=== PATIENT | female | born 1965 | race Caucasian/White ===

== ENCOUNTER → 2016-12-08 | Outpatient (CLI) | payer BC, OTHER ==
[~2016-12-08] MED LIST: ATV/1 PO; LUTE15CA PO; [UNRECOGNIZED DRUG - OTHER] PO
--- NOTE | 2016-12-08 08:33 | DIAGNOSTIC IMAGING REPORT ---
L KNEE 4 OR MORE, L COMPARISON VIEWS CLINICAL HISTORY: 50 years-old Female presenting with LEFT KNEE PAIN. TECHNIQUE: Bilateral frontal views of the knees in standing position as well as lateral, tunnel, and sunrise views of the left knee were obtained. COMPARISON: None. FINDINGS: Bilateral standing views of the knees demonstrate symmetric joint spaces and no gross degenerative change. Dedicated radiographs of the left knee demonstrate no acute fracture or subluxation. No significant degenerative change. No joint effusion. No patellar subluxation. Regional soft tissues within normal limits. IMPRESSION: Normal radiographs of the left knee and frontal view of the right knee. Electronically signed by: Ab Bahena M.D. 12/08/2016 8:31 AM Dictated Date/Time: 12/08/2016 8:30 AM
== END | disposition home or self-care (01) ==
LOC: C.RDSM 08:17
PROVIDERS: ATTEND Family Medicine
DX: M25.562 Pain in left knee (principal)

== ENCOUNTER → 2017-06-30 | Outpatient (CLI) | payer BC ==
--- NOTE | 2017-07-03 08:08 | MAMMOGRAPHY REPORT ---
BREAST MRI OF BOTH BREASTS : 06/30/2017 CLINICAL HISTORY: Possible implant rupture. COMPARISON: Prior outside mammograms dated 09/05/2016, 09/04/2015. Technique: The patient was placed prone in a dedicated breast imaging coil. Noncontrast axial and sa gittal T2 fat saturation, axial and sagittal T2 STIR, and axial T1 weighted sequences were obtained. Note that the exam is tailored for evaluation for implants, and the exam does not evaluate for breas t malignancy as no contrast was given. Findings: Bilateral subpectoral silicone implants are present. The implants are intact bilaterally, without ev idence of intracapsular or extracapsular rupture. The remainder of the visualized soft tissues are g rossly unremarkable on the noncontrast images. IMPRESSION: ACR BI-RADS CATEGORY 2: BENIGN Intact silicone implants bilaterally, without evidence of rupture. Recommend routine bilateral scree osmany mammograms which are due August 2017. Claudia Brewer M.D. 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
== END ==
LOC: C.MRI 06:49
PROVIDERS: ATTEND Specialist
DX: Z03.89 Encounter for observation for other suspected diseases and conditions ruled out (principal); Z96.89 Presence of other specified functional implants

== ENCOUNTER 2022-10-22 12:05 | Observation (INO) ==
[2022-10-22] MEDS ORDERED: SODIUM CHLORIDE 0.9% 1000ML 1,000 ML IV ONE (12:30)
--- NOTE | 2022-10-22 12:36 | Emergency Department Note ---
Impression & Plan Acute appendicitis, Abdominal pain, Leukocytosis ED Provider Note NAME: DAVID LAGOS AGE: 56 SEX: F : 1965 ARRIVES VIA: Walk-In INFORMANT: Patient ED PROVIDER(S): Efrain Hobson DO CHIEF COMPLAINT: Abdominal pain HPI: Patient is a 56-year-old female who presents ER for right lower quadrant abdominal pain which started yesterday. She notes the pain has been getting worse throughout today. She has not really been eating and drinking much. She notes significant worsened with movement including twisting, turning, and bending. Has nausea but no vomiting. No previous abdominal surgeries. No headache or change in vision. No chest pain or shortness of breath. No dysuria urgency or frequency. No other exacerbating or remitting factors. Last ate around 8 AM. PAST MEDICAL HISTORY:See Below PAST SURGICAL HISTORY:See Below FAMILY HISTORY:See Below SOCIAL HISTORY:See Below HOME MEDICATIONS:See Below ALLERGIES:See Below VITALS:See Below PHYSICAL EXAMINATION: GENERAL: Sitting up in bed, alert, well appearing, well nourished, no distress, non-toxic EYE EXAM: normal conjunctiva. OROPHARYNX: mucous membranes are moist LUNGS: Clear to auscultation. Normal chest wall mechanics HEART: no murmurs, S1 normal and S2 normal ABDOMEN: abdomen soft, TTP in RLQ, normo-active bowel sounds, no masses, no rebound or guarding. UPPER EXTREMITIES: upper extremities are grossly normal. LOWER EXTREMITIES: No pitting edema. NEURO EXAM: Normal sensorium, cranial nerves II-XII grossly intact, normal speech, no gross weakness of arms, no gross weakness of legs. MEDICAL DECISION MAKING: Patient is a 56-year-old female who presents to the ER for right lower quadrant abdominal pain. IV was established blood work was obtained. External records reviewed with multiple visits to plastic surgery. Labs show mild leukocytosis 12,000. No significant anemia. BMP with mild hypokalemia 3.4. LFTs bilirubin was unremarkable. Lipase was normal. UA was clean. CT abdomen pelvis confirms appendicitis with possible perforation. Patient was given IV Zosyn. She declined pain medications. She is updated bedside. Discussed with Thalia from general surgery who evaluate the patient took the patient to the OR. Triage Nursing notes reviewed. Limited review of prior medical records performed Vital Signs: reviewed and remarkable for no significant abnormalities Differential diagnosis: Differential diagnoses includes but is not limited to gastritis, peptic ulcer disease, GERD, gallbladder disease, pancreatitis, small bowel obstruction, appendicitis, diverticulitis, hernia, urinary tract infection, torsion, perforation, trauma, infectious. ER treatment provided: See below Diagnostics interpreted by me include EKG and cardiac monitoring as listed below: -Cardiac Monitoring: An order was placed for continuous cardiac monitoring. The monitor shows a rate of 90 with sinus rhythm. -ECG: none -Laboratory studies:Interpreted by me as stated above in MDM and shown below. Imaging studies: Xrays: As interpreted by me:none CTs show: CT abdomen pelvis per my read showed inflammation in the right lower quadrant CT abdomen pelvis per radiology showed acute appendicitis with likely perforation Consultation(s): As described in MDM Critical Care: None Past Med/Surg History Medical History Anxiety Chest pain (06/02/13) Hypothyroidism Surgical History History of breast augmentation (04/2011) Family History Father Arthritis Social History Smoking Status: Never smoker Hx Alcohol Use: Yes Hx Substance Use: No Preferred Language: Bengali Feels Safe at Home: Yes Sunscreen Use: Yes Allergies Allergies Allergy/AdvReac Type Severity Reaction Status Date / Time No Known Allergies Allergy Unverified 10/22/22 14:20 Home Meds Home Medications Medication Instructions Recorded Confirmed lutein 6 mg tablet 6 mg PO DAILY 11/23/18 10/22/22 ashwagandha extract 120 mg capsule 120 mg PO QAM 10/22/22 10/22/22 multivitamin 1 tab PO QAM 10/22/22 10/22/22 pyridoxine (vitamin B6) 100 mg 100 mg PO QAM 10/22/22 10/22/22 tablet (Vitamin B-6) thyroid (pork) 15 mg tablet See Rx Instructions .Route .COMPLEX 10/22/22 10/22/22 ([place] Thyroid) thyroid (pork) 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 Rx Instructions .Route .COMPLEX 10/22/22 10/22/22 Thyroid) Results & Data (ED) Vital Signs Vital Signs - 24 hr 10/22/22 12:12 10/22/22 12:27 10/22/22 12:22 Temperature 36.7 C Temperature Source Oral Pulse Rate 103 H 98 H Pulse Rate from SpO2 Sensor Respiratory Rate 18 Blood Pressure 138/85 Blood Pressure Mean 102 Blood Pressure Position Sitting Pulse Oximetry 98 98 Oxygen Delivery Method Room Air Sepsis Recent Fever Within 48 Hours No Sepsis New/Unexplained Change in Mental Status No Sepsis Action Taken by Nursing No Action Required 10/22/22 13:00 10/22/22 14:00 Temperature Temperature Source Pulse Rate 85 Pulse Rate from SpO2 Sensor 86 Respiratory Rate 16 21 Blood Pressure 128/76 Blood Pressure Mean 93 Blood Pressure Position Pulse Oximetry 100 99 Oxygen Delivery Method Sepsis Recent Fever Within 48 Hours Sepsis New/Unexplained Change in Mental Status Sepsis Action Taken by Nursing Laboratory Data 10/22/22 12:25 10/22/22 12:25 Lab Results 10/22/22 10/22/22 10/22/22 Range/Units 12:25 12:25 12:37 WBC 12.07 H (4.8-10.8) K/ul RBC 4.68 (4.20-5.40) M/uL Hgb 14.3 (12.0-16.0) g/dl Hct 41.5 (37.0-47.0) % MCV 88.7 (80.0-100.0) fL MCH 30.6 (25.0-34.0) pg MCHC 34.5 (32.0-36.0) g/dL RDW Std Deviation 39.3 (36.4-46.3) fL RDW Coeff of Pat 12.0 (11.5-14.5) % Plt Count 264 (130-400) K/uL MPV 10.6 (9.4-12.4) fL Immature Gran % (Auto) 0.2 % Neut % (Auto) 76.2 % Lymph % (Auto) 17.2 % Kerr % (Auto) 5.6 % Eos % (Auto) 0.6 % Baso % (Auto) 0.2 % Neut # (Auto) 9.18 H (1.40-6.50) K/uL Lymph # (Auto) 2.08 (1.2-3.4) K/uL Kerr # (Auto) 0.68 H (0.11-0.59) K/uL Eos # (Auto) 0.07 (0-0.50) K/uL Baso # (Auto) 0.03 (0-0.2) K/uL Immature Gran # (Auto) 0.03 (0.01-0.20) K/uL Sodium 137 (136-145) mmol/L Potassium 3.4 L (3.5-5.1) mmol/L Chloride 104 (98-107) mmol/L Carbon Dioxide 25 (21-32) mmol/L Anion Gap 8 (3-11) BUN 15 (6-23) mg/dl Creatinine 0.85 (0.6-1.2) mg/dl Est Cr Clr Drug Dosing 67.3 ml/min Est GFR ( Amer) 89.4 ml/min Est GFR (Non-Af Amer) 77.1 ml/min BUN/Creatinine Ratio 17.6 (10-20) Glucose 142 H (70-99(Fasting)) mg/dl Calcium 9.5 (8.6-10.3) mg/dl Total Bilirubin 0.6 (0.2-1.0) mg/dl AST 23 (13-39) U/L ALT 21 (7-52) U/L Alkaline Phosphatase 112 H (34-104) U/L Total Protein 7.4 (6.0-8.3) gm/dl Albumin 4.5 (3.4-5.0) gm/dl Globulin 2.9 (2.5-4.0) gm/dl Albumin/Globulin Ratio 1.6 (0.9-2) Lipase 3 L (11-82) U/L Urine Color Yellow Urine Appearance Clear (Clear) Urine pH 6.0 (4.5-7.5) Ur Specific [place] 1.016 (1.000-1.030) Urine Protein Negative (Negative) Urine Glucose (UA) Negative (Negative) Urine Ketones Negative (Negative) Urine Blood Negative (Negative) Urine Nitrite Negative (Negative) Urine Bilirubin Negative (Negative) Urine Urobilinogen Negative (Negative) Ur Leukocyte Esterase Negative (Negative) Administered Medications Discontinued Medications Sodium Chloride (Nss 1000ml) 1,000 mls @ 999 mls/hr IV .Q1H1M ONE Stop: 10/22/22 13:30 Last Infusion: 10/22/22 13:38 Dose: 0 mls/hr Documented By: Admin: 10/22/22 12:35 Dose: 999 mls/hr Documented By: SHIRLEY Piperacillin Sod/Tazobactam Sod (Zosyn) 4.5 gm in 120 mls @ 240 mls/hr IV NOW ONE Stop: 10/22/22 14:47 Last Infusion: 10/22/22 15:11 Dose: 0 mls/hr Documented By: Admin: 10/22/22 14:22 Dose: 240 mls/hr Documented By: SHIRLEY Ioversol (Optiray 320 100ml) 94 ml IV ONCE ONE Stop: 10/22/22 13:35 Last Admin: 10/22/22 13:34 Dose: 94 ml Documented By: POPEYE Imaging Data Radiologist's Impression: Abdomen/Pelvis CT 10/22/22 12:[address] WITH IV CONTRAST CT DOSE: 496.13 mGy.cm HISTORY: Right lower quadrant pain. TECHNIQUE: Multiaxial CT images of the abdomen and pelvis were performed following the use of intravenous contrast. A dose lowering technique was utilized adhering to the principles of ALARA. COMPARISON STUDY: None. FINDINGS: The lung bases are clear. No pneumoperitoneum. No pneumatosis. Bilateral L5 spondylolysis with 6 mm of anterolisthesis. Severe disc space narrowing at L5-S1. Bilateral breast implants are noted. The liver, gallbladder, pancreas, spleen, adrenal glands, and kidneys are unremarkable. No hydronephrosis. The main portal vein is patent. No retroperitoneal or pelvic lymphadenopathy. Mild bladder wall thickening. The uterus and ovaries are unremarkable. No evidence for a bowel obstruction. [id number]-[id number] fecal retention. Mild thickening of the terminal ileum is likely reactive. There is a distended and fluid-filled appendix with periappendiceal fat stranding consistent with acute appendicitis. There are few appendicoliths noted within the appendix. There is questionable tiny focus of microperforation with a developing periappendiceal abscess best seen on image 199. This measures approximately 5 mm in size. This is located at the proximal appendix. There is also extensive submucosal edema versus a small intramural abscess at the base of the appendix located within the medial aspect of the cecum. This is best seen on image 201 and measures approximately 3.0 x 1.0 cm. The appendix measures up to 1.4 cm in diameter. IMPRESSION: 1. Acute appendicitis. 2. There is questionable tiny focus of microperforation with a developing periap pendiceal abscess measuring 5 mm at the proximal appendix. There is also extensive submucosal edema versus a small intramural abscess at the base of the appendix located within the medial aspect of the cecum. This is measures approximately 3.0 x 1.0 cm. 3. No extraluminal gas identified. 4. Mild bladder wall thickening. ACT 112: Negative or not required by law. Electronically signed by: Todd Gentile M.D. 10/22/2022 2:02 PM Discharge Plan Visit Data Chief Complaint: Flank Pain Stated Complaint: ABDOMINAL/FLANK PAIN ED Provider: Efrain Hobson Discharge Problem: Acute appendicitis, Abdominal pain, Leukocytosis Patient Disposition: Admitted As Inpatient Discharge Instructions Interventions: ED Discharge Assessment Last Done: 10/22/22 15:35
[2022-10-22 12:48] LABS: Appearance Urine Clear (Clear); Bilirubin Urine Negative (Negative); Blood Urine Negative (Negative); Color Urine Yellow; Glucose Urine UA Negative (Negative); Ketones Urine Negative (Negative); Leukocyte Esterase Urine Negative (Negative); Nitrite Urine Negative (Negative); Protein Urine Negative (Negative); Specific Gravity Urine 1.016 (1.000-1.030); Urobilinogen Urine Negative (Negative)
[2022-10-22 12:51] LABS: Basophils # (auto) 0.03 K/uL (0-0.2); Basophils % (auto) 0.2 %; Eosinophils # (auto) 0.07 K/uL (0-0.50); Eosinophils % (auto) 0.6 %; Hematocrit (blood only) 41.5 % (37.0-47.0); Hemoglobin 14.3 g/dl (12.0-16.0); Immature Granulocytes # (auto) 0.03 K/uL (0.01-0.20); Immature Granulocytes % (auto) 0.2 %; Lymphocytes # (auto) 2.08 K/uL (1.2-3.4); Lymphocytes % (auto) 17.2 %; Mean Corpuscular Hemoglobin 30.6 pg (25.0-34.0); Mean Corpuscular Hgb Conc 34.5 g/dL (32.0-36.0); Mean Corpuscular Volume 88.7 fL (80.0-100.0); Mean Platelet Volume 10.6 fL (9.4-12.4); Monocytes # (auto) 0.68 K/uL (0.11-0.59); Monocytes % (auto) 5.6 %; Neutrophils # (auto) 9.18 K/uL (1.40-6.50); Neutrophils % (auto) 76.2 %; Platelet Count 264 K/uL (130-400); RDW Standard Deviation 39.3 fL (36.4-46.3); Red Blood Count 4.68 M/uL (4.20-5.40); White Blood Count 12.07 K/ul (4.8-10.8)
[2022-10-22 13:05] LABS: Albumin Globulin Ratio 1.6 (0.9-2); Albumin Level 4.5 gm/dl (3.4-5.0); BUN Creatinine Ratio 17.6 (10-20); Bilirubin,Total 0.6 mg/dl (0.2-1.0); Calcium 9.5 mg/dl (8.6-10.3); Creatinine Clr Calc Pharmacy 67.3 ml/min; Est GFR (African American) 89.4 ml/min; Est GFR (Non-African American) 77.1 ml/min; Globulin 2.9 gm/dl (2.5-4.0); Potassium 3.4 mmol/L (3.5-5.1); Total Protein 7.4 gm/dl (6.0-8.3)
[2022-10-22] MEDS ORDERED: OPTIRAY 320 100ml IV ONE (13:34)
--- NOTE | 2022-10-22 14:05 | CT Scan Report ---
ABDOMEN AND PELVIS CT WITH IV CONTRAST CT DOSE: 496.13 mGy.cm HISTORY: Right lower quadrant pain. TECHNIQUE: Multiaxial CT images of the abdomen and pelvis were performed following the use of intrave nous contrast. A dose lowering technique was utilized adhering to the principles of ALARA. COMPARISON STUDY: None. FINDINGS: The lung bases are clear. No pneumoperitoneum. No pneumatosis. Bilateral L5 spondylolysis w ith 6 mm of anterolisthesis. Severe disc space narrowing at L5-S1. Bilateral breast implants are note d. The liver, gallbladder, pancreas, spleen, adrenal glands, and kidneys are unremarkable. No hydrone phrosis. The main portal vein is patent. No retroperitoneal or pelvic lymphadenopathy. Mild bladder w all thickening. The uterus and ovaries are unremarkable. No evidence for a bowel obstruction. Mild-to -moderate fecal retention. Mild thickening of the terminal ileum is likely reactive. There is a diste nded and fluid-filled appendix with periappendiceal fat stranding consistent with acute appendicitis. There are few appendicoliths noted within the appendix. There is questionable tiny focus of microper foration with a developing periappendiceal abscess best seen on image 199. This measures approximatel y 5 mm in size. This is located at the proximal appendix. There is also extensive submucosal edema ve rsus a small intramural abscess at the base of the appendix located within the medial aspect of the c ecum. This is best seen on image 201 and measures approximately 3.0 x 1.0 cm. The appendix measures u p to 1.4 cm in diameter. IMPRESSION: 1. Acute appendicitis. 2. There is questionable tiny focus of microperforation with a developing periappendiceal abscess van suring 5 mm at the proximal appendix. There is also extensive submucosal edema versus a small intramu ral abscess at the base of the appendix located within the medial aspect of the cecum. This is measur es approximately 3.0 x 1.0 cm. 3. No extraluminal gas identified. 4. Mild bladder wall thickening. ACT 112: Negative or not required by law. Electronically signed by: Todd Gentile M.D. 10/22/2022 2:02 PM
[2022-10-22] MEDS ORDERED: PIPERACILLIN/TAZOBACTAM 4.5 GM/120 ML BAG IV ONE (14:18)
--- NOTE | 2022-10-22 14:49 | Anesthesiology Consultation ---
Date of Service October 22, 2022 Assessment & Plan (1) Encounter for pre-operative examination: Chart Review Chart Review: Acceptable Risk for Surgery History Surgery Operation Date: 10/22/22 15:45 Proposed Procedures p Laparoscopic Appendectomy - Mir Hill DO Height/Weight Height: 5 ft 5 in Weight: 57.2 kg Allergies Allergy/AdvReac Type Severity Reaction Status Date / Time No Known Allergies Allergy Unverified 10/22/22 14:20 Medications Home Medications Medication Instructions Recorded Confirmed Last Taken lutein 6 mg tablet 6 mg PO DAILY 11/23/18 10/22/22 10/22/22 ashwagandha extract 120 mg capsule 120 mg PO QAM 10/22/22 10/22/22 10/22/22 multivitamin 1 tab PO QAM 10/22/22 10/22/22 10/22/22 pyridoxine (vitamin B6) 100 mg 100 mg PO QAM 10/22/22 10/22/22 10/22/22 tablet (Vitamin B-6) thyroid (pork) 15 mg tablet See Rx Instructions .Route .COMPLEX 10/22/22 10/22/22 10/22/22 ([place] Thyroid) thyroid (pork) 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 Rx Instructions .Route .COMPLEX 10/22/22 10/22/22 10/22/22 Thyroid) Past Medical History Medical History (Updated 10/22/22 @ 14:49 by Xavier Zavala MD) Anxiety Chest pain (06/02/13) Hypothyroidism Past Family History Family History Father Arthritis Past Surgical History Surgical History History of breast augmentation (04/2011) Social History Smoking Status: Never smoker Hx Alcohol Use: Yes Hx Substance Use: No Physical Exam Vital Signs Last Vital Signs Temp 36.7 C 10/22/22 12:12 Pulse 85 10/22/22 13:00 Resp 21 10/22/22 14:00 BP 128/76 10/22/22 14:00 Pulse Ox 99 10/22/22 14:00 O2 Del Method Room Air 10/22/22 12:27 Testing Laboratory Results 10/22/22 12:25 10/22/22 12:25 Urine Color Yellow 10/22/22 12:37 Urine Appearance Clear (Clear) 10/22/22 12:37 Urine pH 6.0 (4.5-7.5) 10/22/22 12:37 Ur Specific [place] 1.016 (1.000-1.030) 10/22/22 12:37 Urine Protein Negative (Negative) 10/22/22 12:37 Urine Glucose (UA) Negative (Negative) 10/22/22 12:37 Urine Ketones Negative (Negative) 10/22/22 12:37 Urine Nitrite Negative (Negative) 10/22/22 12:37 Ur Leukocyte Esterase Negative (Negative) 10/22/22 12:37
--- NOTE | 2022-10-22 15:05 | History & Physical Report ---
Date of Service October 22, 2022 Assessment & Plan (1) Acute appendicitis: Plan: This is a 56yF with PMH of hypothyroidism and anxiety who presents to the [facility] ED on 10/22/22 with complaints of abdominal pain that started yesterday AM. Due to to ongoing symptoms and severity of pain she presented to the ER today. A CT a/p was obtained that revealed "acute appendicitis with questionable tiny focus of microperforation with a developing periappendiceal abscess measuring 5 mm at the proximal appendix. There is also extensive submucosal edema versus a small intramural abscess at the base of the appendix located within the medial aspect of the cecum. This is measures approximately 3.0 x 1.0 cm." WBC 12, Hbg 14, Cr 0.8. Vital signs are stable and patient is afebrile. On exam patient's abdomen is soft, non distended with tenderness appreciated in the RLQ to palpation. Imaging and exam/history consistent with acute appendicitis with concern for microperforation. We will proceed with taking patient to the OR today for lap appy. Keep npo/ivf and IV abx have been initiated (zosyn). Dr. Hill will be by to obtain consent. as above. history/exam/imaging c/w acute appendicitis. discussed options/risks ( bleeding/infection/injury to another organ or structure/dvt/pe/me/cva etc....) questions answered. will proceed with lap appendectomy joyce. pt agrees with the plan. History of Present Illness Primary Care Provider: NO PCP This is a 56yF with PMH of hypothyroidism and anxiety who presents to the [facility] ED on 10/22/22 with complaints of abdominal pain. Patient states her pain started yesterday AM around 5am. It began as cramping throughout her whole abdomen which she thought was related to gas. The pain was intermittent and mostly tolerable throughout the day. In the evening time before she went to bed she was pushing around her abdomen and had a bit more pain. She tried to get some sleep, but anytime she moved her pain worsened in severity. Due to to ongoing symptoms she presented to the ER today. A CT a/p was obtained that revealed "acute appendicitis with questionable tiny focus of microperforation with a developing periappendiceal abscess measuring 5 mm at the proximal appendix. There is also extensive submucosal edema versus a small intramural abscess at the base of the appendix located within the medial aspect of the cecum. This is measures approximately 3.0 x 1.0 cm." Patient denies any fevers/chills, chest pain/shortness of breath, nausea/vomiting, or change in bowel habits. Had a BM this AM. She last ate 2 eggs around 8am along with some hard candies. She denies any prior abdominal surgical history. 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 See Rx Instructions .Route .COMPLEX 10/22/22 10/22/22 History Thyroid) Past Med/Surg History Medical History Anxiety Chest pain (06/02/13) Hypothyroidism Surgical History History of breast augmentation (04/2011) Family History Father Arthritis Social History Smoking Status: Never smoker Hx Alcohol Use: Yes Hx Substance Use: No Preferred Language: Russian Feels Safe at Home: Yes Sunscreen Use: Yes Review of Systems Constitutional: no fever and no chills Respiratory: no dyspnea Cardiovascular: no chest pain Gastrointestinal: + abdominal pain; no bloating, no nausea, no vomiting and no change in bowel habits Physical Exam Physical Exam: awake/alert, no distress Respiratory: normal respiratory effort Cardiovascular: Rate/Rhythm: regular rhythm Gastrointestinal (Abdomen): Inspection/Auscultation: abdomen not distended Percussion/Palpation: + abdomen tender (ttp in the RLQ) and abdomen soft Results & Data Results & Data Vital Signs (Past 12 Hours) Vital Signs Temp Pulse Resp BP Pulse Ox O2 Del Method 10/22/22 14:00 21 128/76 99 10/22/22 13:00 85 16 100 10/22/22 12:22 98 H 10/22/22 12:27 98 Room Air 10/22/22 12:12 36.7 C 103 H 18 138/85 98 Diagnostic Findings ABDOMEN AND PELVIS CT WITH IV CONTRAST CT DOSE: 496.13 mGy.cm HISTORY: Right lower quadrant pain. TECHNIQUE: Multiaxial CT images of the abdomen and pelvis were performed following the use of intravenous contrast. A dose lowering technique was utilized adhering to the principles of ALARA. COMPARISON STUDY: None. FINDINGS: The lung bases are clear. No pneumoperitoneum. No pneumatosis. Bilateral L5 spondylolysis with 6 mm of anterolisthesis. Severe disc space narrowing at L5-S1. Bilateral breast implants are noted. The liver, gallbladder, pancreas, spleen, adrenal glands, and kidneys are unremarkable. No hydronephrosis. The main portal vein is patent. No retroperitoneal or pelvic lymphadenopathy. Mild bladder wall thickening. The uterus and ovaries are unremarkable. No evidence for a bowel obstruction. Oyjl-lb-[id number] fecal retention. Mild thickening of the terminal ileum is likely reactive. There is a distended and fluid-filled appendix with periappendiceal fat stranding consistent with acute appendicitis. There are few appendicoliths noted within the appendix. There is questionable tiny focus of microperforation with a developing periappendiceal abscess best seen on image 199. This measures approximately 5 mm in size. This is located at the proximal appendix. There is also extensive submucosal edema versus a small intramural abscess at the base of the appendix located within the medial aspect of the cecum. This is best seen on image 201 and measures approximately 3.0 x 1.0 cm. The appendix measures up to 1.4 cm in diameter. IMPRESSION: 1. Acute appendicitis. 2. There is questionable tiny focus of microperforation with a developing periappendiceal abscess measuring 5 mm at the proximal appendix. There is also extensive submucosal edema versus a small intramural abscess at the base of the appendix located within the medial aspect of the cecum. This is measures approximately 3.0 x 1.0 cm. 3. No extraluminal gas identified. 4. Mild bladder wall thickening. ACT 112: Negative or not required by law. Electronically signed by: Todd Gentile M.D. 10/22/2022 2:02 PM PG Care Time/CCT Total # of Minutes Spent Total Time Spent with Patient: Total time spent is greater than 50% in coordination of care (as documented) at patient's floor/unit and/or counseling patient: Coding Level of Care Code 19726 INT INP/OBS CARE 2/55MIN Diagnoses Acute appendicitis K35.80
[2022-10-22] MEDS ORDERED: MIDAZOLAM HCL 1 MG/ML 2ML VIAL ONE (15:32)
[2022-10-22] MEDS ORDERED: fentaNYL citrate PF 100 MCG/2 ML VIAL ONE ×2 (15:32→17:36)
[2022-10-22] MEDS ORDERED: ONDANSETRON INJ 2 MG/ML 2 ML VIAL ONE ×2 (15:36→17:36)
[2022-10-22] MEDS ORDERED: GLYCOPYRROLATE 0.2 MG/ML VIAL ONE (15:36)
[2022-10-22] MEDS ORDERED: DEXAMETHASONE SOD INJ 4 MG/ML VIAL ONE (15:36)
[2022-10-22] MEDS ORDERED: LIDOCAINE 2% 2 ML VIAL/AMP(20MG/ML) INFIL ONE (15:36)
[2022-10-22] MEDS ORDERED: PROPOFOL IV EMULSION 10 MG/ML 20 ML VIAL IV ONE (15:36)
[2022-10-22] MEDS ORDERED: ROCURONIUM BROMIDE 10 MG/ML 5 ML VIAL IV ONE (15:36)
[2022-10-22] MEDS ORDERED: NEOSTIGMINE METHYLSULFATE 1 MG/ML 10ML VIAL ONE (15:36)
[2022-10-22] MEDS ORDERED: BUPIVACAINE/EPINEPHRINE 0.5% MPF 1:200,000 30 ML VIAL ONE (16:01)
[2022-10-22] MEDS ORDERED: ATROPINE SULFATE 0.1 MG/ML 10ML SYR IV PRN (16:02)
[2022-10-22] MEDS ORDERED: PROMETHAZINE HCL 6.25 MG in SODIUM CHLORIDE 0.9% 50 ML IV PRN (16:02)
[2022-10-22] MEDS ORDERED: KETOROLAC 30 MG/ML VIAL IV PRN (16:02)
[2022-10-22] MEDS ORDERED: ONDANSETRON INJ 2 MG/ML 2 ML VIAL IV PRN ×2 (16:02→18:29)
--- NOTE | 2022-10-22 17:06 | Operative Report ---
PG Post Operative Report Pre & Post Diagnosis Operation Date: 10/22/22 15:45 Pre-Op Diagnosis: Acute Appendicitis Post-Op Diagnosis: Acute Appendicitis;intramural cecal abcess I identified the patient and participated in the time-out.: Yes Procedure Operation Date: 10/22/22 15:45 Actual Procedures p Laparoscopic Appendectomy with Partial Cecectomy(Not Applicable) - Mir Hill DO Surgeon Mir Hill DO Generator Mechanic neeta Mcgill Estimated Blood Loss 5 Findings Consistent with Post-Op Diagnosis Specimens appendix/portion of cecum Description of Procedure After informed consent was obtained the patient was taken to the operating room and placed in supine position. After successful intubation a Vivas catheter was placed and the left arm was tucked. A Vivas catheter was inserted sterilely. I began by making a periumbilical incision with an 11 blade scalpel and carried this down through the soft tissue using electrocautery. The anterior rectus fascia was opened using electrocautery and 2 #0 Vicryl stay sutures were placed. The peritoneum was elevated using hemostats and incised under direct vision us ing a Metzenbaum scissor. A finger sweep was performed. A 12 mm Carter trocar was placed and the abdomen was insufflated to 18 mmHg. A laparoscope was inserted and the abdomen was examined in 360. A suprapubic 5 mm port and a left lower quadrant 12 mm port were placed under direct vision. The patient was air planed to the left as well as placed in a slight Trendelenburg position. We began by looking in the right lower quadrant. We were able to readily identify the appendix and it was grossly inflamed. It had not perforated. There is a small amount of purulent fluid in the right lower quadrant and the pelvis. We immediately irrigated and suctioned this out. I was able to use primarily blunt dissection to pull the appendix away from the right lower quadrant sidewall. I was then able to use a ELIZABETH purple 60 mm cartridge stapler to transect both the mesentery of the appendix as well as the appendix itself at its base with the cecum. I was able to palpate the small 2 to 3 cm mass at the base of the cecum as seen on CT scan. I presume this is an intramural abscess. Because of this I had to use several firings of the purple staple and take a portion of the cecum as well as the appendix where it attaches. It was then placed into an Endo Catch bag and removed from the camera port site. We thoroughly irrigated the right lower quadrant as well as the pelvis. There was adequate hemostasis. I ran the small bowel backwards from the terminal ileum for about 6 feet all of which was normal. All the peritoneal surfaces were normal. Small/ large bowel, liver, stomach etc. all appeared grossly normal. We did a final irrigation and then removed all the trochars and desufflated the abdomen. The fascia of the camera port as well as the left lower quadrant were closed using 0 Vicryl in [id number] fashion. Wounds were all irrigated and closed using 4-0 Monocryl. Marcaine was injected around them for postoperative analgesia and skin glue used as a dressing. The patient was awakened extubated and transferred to recovery in stable condition. My physician's assistant county engineer was present through the entire case. She assisted with prepping the patient and helped with exposure for port placement, helped run the camera and helped with fascial/wound closure at the end of the procedure as well as dressing placement. I attest to the content of the Intraoperative Record and any orders documented therein. Any exceptions are noted below. I attest to the content of the Intraoperative Record and any orders documented therein. Any exceptions are noted below.
[2022-10-22] MEDS ORDERED: MEPERIDINE HCL 25 MG/ML CARP/VIAL IV PRN (17:15)
[2022-10-22] MEDS: fentaNYL citrate PF 100 MCG/2 ML VIAL IV PRN ×4 (17:38→17:53)
--- NOTE | 2022-10-22 18:09 | Anesthesiology Progress Note ---
Date of Service October 22, 2022 Anesthesia Post Procedure Vital Signs Vital Signs: Temp Pulse Pulse Resp BP BP Pulse Ox 10/22/22 18:00 37.1 C 73 18 105/58 L 92 10/22/22 17:50 72 16 114/65 97 10/22/22 17:40 61 21 112/74 98 10/22/22 17:30 69 20 115/64 98 10/22/22 17:20 63 20 108/64 98 10/22/22 17:14 36.2 C L 96 H 16 104/63 96 10/22/22 14:00 21 128/76 99 10/22/22 13:00 85 16 100 10/22/22 12:22 98 H 10/22/22 12:27 98 10/22/22 12:12 36.7 C 103 H 18 138/85 98 O2 Del Method O2 Flow Rate 10/22/22 18:00 Room Air 10/22/22 17:50 Oxymask 3 10/22/22 17:40 Oxymask 4 10/22/22 17:30 Oxymask 4 10/22/22 17:20 Oxymask 4 10/22/22 17:14 Oxymask 6 10/22/22 14:00 10/22/22 13:00 10/22/22 12:22 10/22/22 12:27 Room Air 10/22/22 12:12 Pain Intensity Abdomen: Pain Intensity: 4 Transfer of Care Handoff Completed per policy Notes Mental Status: alert / awake / arousable Patient Amnestic to Procedure: Yes Nausea / Vomiting: adequately controlled Pain: adequately controlled Airway Patency, RR, SpO2: stable & adequate BP & HR: stable & adequate Hydration State: stable & adequate Anesthetic Complications: no major complications apparent
[2022-10-22] MEDS ORDERED: MoRPHine SULFATE 4 MG/ML 1 ML CARP\\VIAL IV PRN (18:29)
[2022-10-22] MEDS ORDERED: MoRPHine SULFATE 2 MG/ML CARP IV PRN (18:29)
[2022-10-22] MEDS ORDERED: oxyCODONE HCL IR 5 MG TAB (IMMEDIATE RELEASE) PO PRN ×2 (18:29)
[2022-10-22] MEDS ORDERED: ARMOUR THYROID 30 MG TAB PO SCH (18:29)
[2022-10-22] MEDS: LACTATED RINGER'S 1,000 ML IV SCH (18:37)
[2022-10-22] MEDS: ACETAMINOPHEN 1,000 MG/100 ML VIAL IV SCH (18:39)
[2022-10-22] MEDS: PIPERACILLIN/TAZOBACTAM 4.5 GM in DEXTROSE 5% 100 ML IV SCH (21:11)
[2022-10-23] MEDS: ACETAMINOPHEN 1,000 MG/100 ML VIAL IV SCH ×2 (02:31→08:34)
[2022-10-23] MEDS: PIPERACILLIN/TAZOBACTAM 4.5 GM in DEXTROSE 5% 100 ML IV SCH (03:36)
[2022-10-23] MEDS ORDERED: ARMOUR THYROID 30 MG TAB PO SCH (06:30)
[2022-10-23 07:12] LABS: Basophils # (auto) 0.02 K/uL (0-0.2); Basophils % (auto) 0.2 %; Hematocrit (blood only) 34.2 % (37.0-47.0); Hemoglobin 11.7 g/dl (12.0-16.0); Immature Granulocytes # (auto) 0.02 K/uL (0.01-0.20); Immature Granulocytes % (auto) 0.2 %; Lymphocytes # (auto) 1.66 K/uL (1.2-3.4); Lymphocytes % (auto) 17.3 %; Mean Corpuscular Hemoglobin 30.3 pg (25.0-34.0); Mean Corpuscular Hgb Conc 34.2 g/dL (32.0-36.0); Mean Corpuscular Volume 88.6 fL (80.0-100.0); Mean Platelet Volume 10.7 fL (9.4-12.4); Monocytes # (auto) 0.65 K/uL (0.11-0.59); Monocytes % (auto) 6.8 %; Neutrophils # (auto) 7.26 K/uL (1.40-6.50); Neutrophils % (auto) 75.5 %; Platelet Count 223 K/uL (130-400); RDW Coefficient of Variation 12.1 % (11.5-14.5); RDW Standard Deviation 39.7 fL (36.4-46.3); Red Blood Count 3.86 M/uL (4.20-5.40); White Blood Count 9.61 K/ul (4.8-10.8)
[2022-10-23] MEDS: LACTATED RINGER'S 1,000 ML IV SCH (07:18)
--- NOTE | 2022-10-23 09:25 | Surgery Progress Note ---
Date of Service October 23, 2022 Assessment & Plan (1) Acute appendicitis: Plan: Doing well. WBC trending down. Stable for discharge. Discharge instructions reviewed verbally. Follow-up in 1 to 2 weeks Admission and Anticipated Discharge Date Admission Date: October 22, 2022 Subjective Patient seen. Feeling well other than some incisional tenderness. She did tolerate breakfast Physical Exam Physical Exam: Alert. No acute distress Abdomen is soft with expected incisional tenderness. Incisions look good Results & Data Vital Signs (Past 12 Hours) Vital Signs Temp Pulse Resp BP Pulse Ox O2 Del Method 10/23/22 07:24 36.9 C 74 16 100/64 96 Room Air 10/23/22 03:23 36.7 C 72 16 100/62 96 Room Air 10/22/22 21:28 36.2 C L 78 18 118/73 96 Room Air PG Care Time/CCT Total # of Minutes Spent Total Time Spent with Patient: Total time spent is greater than 50% in coordination of care (as documented) at patient's floor/unit and/or counseling patient: Coding Level of Care Code 68265 Post Operative Follow-Up Diagnoses Acute appendicitis K35.80
== END 2022-10-23 10:44 | disposition home or self-care (01) ==
LOC: ED 12:05 → OR 15:35 → 3W 15:35